=== PATIENT | male | born 1975 | race Caucasian/White ===

== ENCOUNTER 2024-09-10 11:41 | Emergency (ER) | payer SELFPAY ==
[~2024-09-10] VITALS: Ht 177.8 cm; Wt 77.1 kg
[2024-09-10] MEDS ORDERED: LIDOCAINE HCL 1% 20 ML VIAL ONE (12:12)
[2024-09-10] MEDS ORDERED: TDAP DIPH,PERTUSS,TET VAC/PF 0.5 ML DISP.SYRIN IM ONE (12:12)
[2024-09-10] MEDS: TDAP DIPH,PERTUSS,TET VAC/PF 0.5 ML DISP.SYRIN IM ONE (12:19)
[2024-09-10] MEDS: LIDOCAINE HCL 1% 20 ML VIAL TP ONE (12:19)
[2024-09-10] MEDS ORDERED: CEPH500C2 PO (13:33)
[2024-09-10] MEDS ORDERED: NEOMY/BACITRA/POLYMYXIN B OINT UD PACKET TP ONE ×2 (13:35→13:45)
[2024-09-10] MEDS: NEOMY/BACITRA/POLYMYXIN B OINT UD PACKET TP ONE (13:45)
[2024-09-10 13:48] VITALS: BP 122/83; O2SAT 99
== END 2024-09-10 13:48 | disposition home or self-care (01) ==
LOC: ER 11:41
DX: S61.412A Laceration without foreign body of left hand, initial encounter (principal); W26.8XXA Contact with other sharp object(s), not elsewhere classified, initial encounter; Y93.89 Activity, other specified; Y92.89 Other specified places as the place of occurrence of the external cause; Y99.8 Other external cause status
CPT/HCPCS: 12002; 90471; 90715; 99283; J3490; A4606; A4663